=== PATIENT | female | born 1955 | race Caucasian/White ===

== ENCOUNTER 2016-06-14 08:17 | Day surgery (SDC) | payer OTHER ==
[~2016-06-14] VITALS: Ht 171.4 cm; Wt 68.4 kg
[~2016-06-14 08:17] MED LIST: ACYC400T84 PO; ESTR1TAB79 PO; FLUO20CA38 PO; FLUT16SP24 NS; HYD25 PO; LEVO50TA64 PO; LOSA25TA5 PO; METF-382 PO; RABE20TA5 PO
[2016-06-14] MEDS ORDERED: PROPOFOL 20 ML ONE ×2 (08:50→09:39)
[2016-06-14 09:03] VITALS: Ht 171.4 cm; Wt 68.4 kg
[2016-06-14 09:10] VITALS: BP 163/84; PULSE 75; RESP 16
[2016-06-14] MEDS ORDERED: PANTOPRAZOLE PO (09:10)
[2016-06-14] MEDS ORDERED: IBUPROFEN PO (09:10)
[2016-06-14 09:40] VITALS: BP 109/66; RESP 15
--- NOTE | 2016-06-14 10:10 | GILP ---
DATE OF PROCEDURE: 06/14/2016 NAME OF PROCEDURE: Colonoscopy. SURGEON: Michelle Marcial MD PREOPERATIVE DIAGNOSIS: Screening colonoscopy. POSTOPERATIVE DIAGNOSES: 1. Colonoscopy all the way to the cecum. 2. Occasional diverticulosis of the colon. 3. Internal hemorrhoids. 4. No colon neoplasm was identified. INDICATION FOR THE PROCEDURE: Ms. Milana Black is a 61-year-old female patient who was scheduled for screening colonoscopy. The procedure and possible complications were well explained to the patient, she understood and cons ented to the procedure. DESCRIPTION OF PROCEDURE: Under the influence of anesthesia, the colonoscope was carefully introduc ed in the rectum and under direct vision, it was advanced all the way to the cecum. FINDINGS: The patient had occasional diverticulosis of the colon. She also had internal hemorrhoid s. She was noted to have redundant colon. No colon neoplasm was identified. She tolerated the procedure very well and there was no complication from the procedure. At the end of the procedure, she was awake with stable vital signs and she was discharged home to the care of h er family. IMPRESSION: 1. Colonoscopy all the way to the cecum. 2. Redundant colon. 3. Occasional diverticulosis. 4. Internal hemorrhoids. 5. No colon neoplasm was identified. PLAN: Next screening colonoscopy in 10 years. Dictated By: MICHELLE GARRETT/SUNIL Conf#: [id number] DID#: [id number] CC: MICHELLE MARCIAL MD;*EndCC*
[2016-06-14 10:15] VITALS: BP 138/76; PULSE 73; RESP 18
== END 2016-06-14 12:53 | disposition home or self-care (01) ==
LOC: GIL 08:17
PROVIDERS: ATTEND Internal Medicine Gastroenterology
DX: Z12.11 Encounter for screening for malignant neoplasm of colon (principal); K64.8 Other hemorrhoids; K57.90 Diverticulosis of intestine, part unspecified, without perforation or abscess without bleeding; I10 Essential (primary) hypertension; E11.9 Type 2 diabetes mellitus without complications; E03.9 Hypothyroidism, unspecified; E78.5 Hyperlipidemia, unspecified
CPT/HCPCS: 45378; 82962; Z7610

== ENCOUNTER 2016-07-16 07:15 | Day surgery (SDC) | payer OTHER ==
[2016-07-13 14:03] VITALS: BMI 24.2
[2016-07-16] VITALS (10 sets, daily range): BP systolic 120–139; BP diastolic 62–80; PULSE 75–100; RESP 14–19; Ht 170.2 cm; Wt 70.0 kg
[~2016-07-16] VITALS: Ht 170.2 cm; Wt 70.0 kg
[~2016-07-16 07:15] MED LIST changes: +BUPIVACAINE 0.25%/EPI (SDV) 30 ML INJ ONE; +CLINDAMYCIN 600 MG/D5W (PMX) 50 ML IVPB SCH; +EPHEDrine SULFATE 50 MG/5 ML SYG ONE; -ESTR1TAB79 PO; -FLUO20CA38 PO; -FLUT16SP24 NS; +IBUPROFEN PO; +LIDOCAINE 2% (SDV) 5 ML INJ ONE; -METF-382 PO; +METF500T4 PO; +PANTOPRAZOLE PO; -RABE20TA5 PO; +SOD CHLORIDE 0.9% 1,000 ML IV SCH
[2016-07-16] MEDS ORDERED: METF500T4 PO (08:11)
[2016-07-16] MEDS ORDERED: HYD25 PO (08:12)
[2016-07-16] MEDS ORDERED: LOSA25TA5 PO (08:12)
[2016-07-16] MEDS ORDERED: LEVO50TA74 PO (08:13)
[2016-07-16] MEDS ORDERED: LEVO75TA5 PO (08:13)
[2016-07-16] MEDS ORDERED: ESTR1TAB13 PO (08:15)
[2016-07-16] MEDS ORDERED: ACYC400T2 PO (08:15)
[2016-07-16] MEDS ORDERED: FLUT16SP17 NASAL (08:17)
[2016-07-16] MEDS ORDERED: PANT20TA3 PO (08:17)
[2016-07-16] MEDS ORDERED: FLUO20CA22 PO (08:18)
[2016-07-16] MEDS ORDERED: IBUP800T25 PO (08:19)
[2016-07-16] MEDS ORDERED: BENZ-5 PO (08:19)
[2016-07-16] MEDS ORDERED: BIOT10004 PO (08:20)
[2016-07-16] MEDS ORDERED: CINN500C9 PO (08:20)
[2016-07-16] MEDS ORDERED: CALC500T91 PO (08:21)
[2016-07-16] MEDS ORDERED: MULTI PO (08:21)
[2016-07-16] MEDS ORDERED: PROPOFOL 20 ML ONE (08:23)
[2016-07-16] MEDS ORDERED: MIDAZOLAM 1 MG/ML 2 ML INJ ONE (08:23)
[2016-07-16] MEDS ORDERED: FENTAnyl 50 MCG/ML VIAL ONE (08:23)
--- NOTE | 2016-07-16 09:07 | HPN ---
Date/Time of Note Date/Time of Note DATE: 07/16/16 TIME: 09:07 Interval H&P Admission Note Pt. seen H&P reviewed: No system changes BURT BRANCH MD July 16, 2016 09:07
[2016-07-16] MEDS ORDERED: BACITRACIN/POLYMYXIN 0.9 GM OINT TOP ONE (09:15)
[2016-07-16] MEDS ORDERED: BUPIVACAINE 0.25%/EPI (SDV) 30 ML INJ INJ ONE (09:15)
[2016-07-16] MEDS ORDERED: CLINDAMYCIN 600 MG/D5W (PMX) 0 ML IVPB ONE (09:28)
[2016-07-16] MEDS ORDERED: CLINDAMYCIN 900 MG/D5W (PMX) 50 ML IVPB ONE (09:29)
[2016-07-16] MEDS ORDERED: BACITRACIN 0.9 GM OINT ONE ×2 (09:31→10:16)
[2016-07-16] MEDS ORDERED: DEXAMETHASONE 4 MG/ML 1 ML INJ ONE (09:42)
[2016-07-16] MEDS ORDERED: ONDANSETRON 4 MG INJ ONE (09:42)
[2016-07-16] MEDS ORDERED: FAMOTIDINE 20 MG INJ ONE (09:42)
[2016-07-16] MEDS ORDERED: PHENYLephrine (100 MCG/ML) 5ML SYG ONE (09:57)
[2016-07-16] MEDS ORDERED: KETOROLAC 30 MG INJ ONE (10:17)
--- NOTE | 2016-07-16 10:27 | OPR ---
Date/Time of Note Date/Time of Note DATE: 07/16/16 TIME: 10:21 Operative Report Procedure Date: July 16, 2016 Preoperative Diagnosis Soft tissue mass of scalp 2 Postoperative Diagnosis Soft tissue mass of scalp 2 Operation Performed 1. Excision soft tissue mass of left posterior scalp approximately 3 cm 2. Excision soft tissue mass of right frontal scalp approximately 2 cm Surgeon: BURT BRANCH MD Anesthesia: general Anesthesiologist: NEETU PORTILLO DO Estimated Blood Loss: minimal Specimens 1. Soft tissue mass left posterior scalp 2. Soft tissue mass right frontal scalp Complications: None Pt Condition Post Procedure: stable Disposition: PACU Indications The patient is a 61-year-old female who presented to the office with a soft tissue mass of the left occipital and right frontal scalp. These have been present for several years, but had been growing and causing increasing pain and discomfort along with headaches. She was scheduled for elective excision for symptom relief and definitive pathological diagnosis. All risks and benefits of the procedure including but not limited to, wound infection, excessive bleeding, postoperative seroma/hematoma, prolonged wound healing, mass recurrence, etc. were all explained to the patient in full detail. She understood and wished to proceed with the procedure. Informed consent was obtained Operative\Procedure Findings Findings consistent with pilar cysts Procedure Description The patient was brought to the operating room and placed supine on the operating table. Bilateral sequential compression devices were placed on both lower extremities. A dose of broad-spectrum perioperative intravenous antibiotics was given. The masses were marked and confirmed with the patient preoperatively in the holding area. After the induction of smooth general LMA anesthesia the patient's left occipital scalp area was prepped and draped in standard surgical fashion. After performance of the surgical timeout 0.25% Marcaine with epinephrine was injected over the area of the mass. An incision was then made over the mass using a 15 blade scalpel. Incision was carried down sharply through the skin and the dermis. Using Metzenbaum scissors the mass was dissected circumferentially and delivered through the incision. It appeared consistent with a pilar cyst measured approximately 3 cm. It was transected at its base and passed off the field as specimen. Hemostasis was inspected for and noted to be total. Further local anesthesia was injected around the skin and the incision site. The skin was reapproximated using interrupted 3-0 Prolene sutures. Incision was cleaned. Bacitracin was applied. Attention was then turned to the right frontal scalp mass. The area was prepped and redraped. 0.25% Marcaine with epinephrine was injected over the area of the mass. An incision was then made over the mass using a 15 blade scalpel. Incision was carried down sharply through the skin and the dermis. Using Metzenbaum scissors the mass was dissected circumferentially and delivered through the incision. It appeared consistent with a pilar cyst and measured approximately 2 cm. It was transected at its base and passed off the field as specimen. Hemostasis was inspected for and noted to be total. For the local anesthesia was injected around the skin and the incision site. The skin was reapproximated using interrupted 3-0 Prolene sutures. Incision was cleaned. Bacitracin was applied. The patient was then awoken from anesthesia and transferred to recovery room in stable condition. All counts were correct at the end of the case 2. BURT BRANCH MD July 16, 2016 10:27
[2016-07-16] MEDS ORDERED: DIPHENHYDRAMINE 50 MG INJ IV PRN (10:30)
[2016-07-16] MEDS ORDERED: MEPERIDINE 25 MG INJ IV PRN (10:30)
[2016-07-16] MEDS ORDERED: IBUPROFEN 600 MG TAB PO PRN (10:30)
[2016-07-16] MEDS ORDERED: ONDANSETRON 4 MG INJ IV PRN (10:30)
[2016-07-16] MEDS ORDERED: KETOROLAC 30 MG INJ IV PRN (10:30)
[2016-07-16] MEDS ORDERED: hydrALAzine 20 MG INJ IV PRN (10:30)
[2016-07-16] MEDS ORDERED: HYDROmorphONE (0.2 MG/ML) 10ML SYG IV PRN ×2 (10:30)
== END 2016-07-16 12:02 | disposition home or self-care (01) ==
LOC: SDS 07:15
PROVIDERS: ATTEND Surgery
DX: L72.11 Pilar cyst (principal); E11.9 Type 2 diabetes mellitus without complications; I10 Essential (primary) hypertension; E03.9 Hypothyroidism, unspecified; F41.8 Other specified anxiety disorders
CPT/HCPCS: 11426; 82962; 88307; J1100; J1885; J2250; J2370; J2405; J3010; Z7512; Z7610

== ENCOUNTER 2017-11-04 07:03 | Day surgery (SDC) | END 2017-11-04 13:09 | disposition home or self-care (01) ==

== ENCOUNTER 2018-01-10 05:47 | Day surgery (SDC) | END 2018-01-10 11:00 | disposition home or self-care (01) ==

== ENCOUNTER 2018-11-29 08:36 | Emergency (ER) | payer OTHER ==
[~2018-11-29] VITALS: Ht 170.2 cm; Wt 64.8 kg
[~2018-11-29 08:36] MED LIST changes: +ACET325T33 PO; -ACYC400T84 PO; -BUPIVACAINE 0.25%/EPI (SDV) 30 ML INJ ONE; -CLINDAMYCIN 600 MG/D5W (PMX) 50 ML IVPB SCH; +CYCL10TA7 PO; +DIAZ5TAB4 PO; -EPHEDrine SULFATE 50 MG/5 ML SYG ONE; +ESTR1TAB13 PO; -HYD25 PO; +HYDR25TA6 PO; -IBUPROFEN PO; -LEVO50TA64 PO; +LEVO50TA7 PO; -LIDOCAINE 2% (SDV) 5 ML INJ ONE; +LOSA25TA12 PO; -LOSA25TA5 PO; +MELO7.5T38 PO; +METF-849 PO; -METF500T4 PO; +PANT20TA3 PO; -PANTOPRAZOLE PO; +PRED20TA PO; -SOD CHLORIDE 0.9% 1,000 ML IV SCH
[2018-11-29 08:39] VITALS: BP 179/92; PULSE 101; RESP 18; Ht 170.2 cm; Wt 64.8 kg
[2018-11-29] MEDS ORDERED: KETOROLAC 30 MG INJ IM STA (09:24)
[2018-11-29] MEDS ORDERED: DIAZEPAM 5 MG TAB PO ONE (09:30)
== END 2018-11-29 09:59 | disposition home or self-care (01) ==
LOC: FTE 08:36
DX: S46.911A Strain of unspecified muscle, fascia and tendon at shoulder and upper arm level, right arm, initial encounter (principal); I10 Essential (primary) hypertension; M62.838 Other muscle spasm; E11.9 Type 2 diabetes mellitus without complications; X58.XXXA Exposure to other specified factors, initial encounter; Y92.9 Unspecified place or not applicable; Z79.84 Long term (current) use of oral hypoglycemic drugs
CPT/HCPCS: 96372; J1885; Z7502; Z7610

== ENCOUNTER 2018-12-02 12:05 | Emergency (ER) | payer OTHER ==
[~2018-12-02] VITALS: Ht 165.1 cm; Wt 65.1 kg
[2018-12-02 12:22] VITALS: BP 153/88; PULSE 99; RESP 18; Ht 165.1 cm; Wt 65.1 kg
== END 2018-12-02 13:06 | disposition home or self-care (01) ==
LOC: FTE 12:05 → E/R 13:06
DX: M54.2 Cervicalgia (principal); I10 Essential (primary) hypertension; Z79.84 Long term (current) use of oral hypoglycemic drugs
CPT/HCPCS: 99283